=== PATIENT | male | born 1995 | race Caucasian/White ===

== ENCOUNTER → 2021-02-09 | Outpatient (CLI) | payer BC, SELFPAY ==
--- NOTE | 2021-02-09 09:45 | VAS_PTH ---
PATIENT: ALBA MUKHERJEE [facility]: [facility] U#:[id number] AGE/SX: 25/M ROOM: RE02/09/[address]: Dr. Christiano Lobato MD : 1995 BED: DIS: 02/09/2021 SPEC #: [id number] RECD: 02/09/21 13:48 STATUS: MIR SHELDON #: [id number] SOFIA: 02/09/21 09:[address]: Christiano Lobato DEPT: SURGICAL PATHOLOGY RECD BY: Esdras Taylor Tissues: A - Vas deferens, NOS B - Vas deferens, NOS Procedures: Surgery Specimen Level II HEADER OPERATION: Vasectomy PRE-OP DIAGNOSIS: Vasectomy/sterilization TISSUE SUBMITTED: A. Right vas deferens, B. Left vas deferns MICROSCOPIC DIAGNOSIS A. Right vas deferens, partial vasectomy: Completely transected segment of vas deferens, no pathologic diagnosis. B. Left vas deferens, partial vasectomy: Completely transected segment of vas deferens, no pathologic diagnosis. MICROSCOPIC DESCRIPTION Slides are reviewed. GROSS DESCRIPTION A - Received is one container designated right vas deferens. The specimen consists of a tubular segment of santos soft tissue measuring 0.7 cm in length and 0.2 cm in diameter. The specimen is bisected and submitted entirely in one cassette. B - Received is one container designated left vas deferens. The specimen consists of a tubular segment of santos soft tissue measuring 1.0 cm in length and 0.3 cm in diameter. The specimen is bisected and submitted entirely in one cassette. / SJ:cc 02/11/21 TC:4 CPT: 94324 x2
== END | disposition home or self-care (01) ==
LOC: LABSPEC 13:55
PROVIDERS: Visit Provider Surgery
DX: Z98.52 Vasectomy status (principal)
CPT/HCPCS: 88302